=== PATIENT | female | born 1985 | race Asian ===

== ENCOUNTER 2017-06-07 08:15 | Inpatient (IN) | payer SELFPAY ==
[2017-06-06 12:55] LABS: BASOPHILS # (AUTO) 0.1 K/uL (0.0-0.2); BASOPHILS % (AUTO) 0.7 % (0.0-2.0); EOSINOPHILS # (AUTO) 0.1 K/uL (0.0-0.4); EOSINOPHILS % (AUTO) 0.6 % (0.0-4.0); HEMOGLOBIN 11.7 g/dL (12.0-16.0); LYMPHOCYTES # (AUTO) 1.5 K/uL (1.0-5.5); LYMPHOCYTES % (AUTO) 17.5 % (20.5-51.5); MEAN CORPUSCULAR HEMOGLOBIN 29 pg (27-31); MEAN CORPUSCULAR HGB CONC 33 % (32-36); MEAN CORPUSCULAR VOLUME 87 fL (79.0-98.0); MONOCYTES # (AUTO) 0.6 K/uL (0.0-1.0); MONOCYTES % (AUTO) 6.9 % (1.7-9.3); NEUTROPHILS # (AUTO) 6.3 K/uL (1.8-7.7); NEUTROPHILS % (AUTO) 74.3 % (40.0-70.0); PLATELET COUNT (AUTO) 178 K/uL (130-430); RED BLOOD CELL COUNT(AUTO) 4.03 MIL/uL (4.2-6.2); RED CELL DISTRIBUTION WIDTH 13.1 % (9.0-15.0); WHITE BLOOD COUNT (AUTO) 8.6 K/uL (4.8-10.8)
[2017-06-06 12:59] LABS: BILIRUBIN,URINE NEGATIVE (NEGATIVE); BLOOD, URINE NEGATIVE (NEGATIVE); CLARITY/URINE SL HAZY (CLEAR); COLOR,URINE YELLOW (YELLOW); GLUCOSE,URINE NEGATIVE (NEGATIVE); KETONES,URINE NEGATIVE (NEGATIVE); LEUKOCYTE ESTERASE ,URINE NEGATIVE (NEGATIVE); NITRITE, URINE NEGATIVE (NEGATIVE); PH,URINE 6.5 (5.0-8.0); PROTEIN URINE NEGATIVE (NEGATIVE); UROBILINOGEN,URINE 0.2 (0.2-1.0)
[~2017-06-07] VITALS: Ht 160 cm; Wt 79.4 kg
[2017-06-07] MEDS ORDERED: CEFAZOLIN 2 GM IVPB PREMIX 50 ML IV ONE ×2 (08:30→13:21)
[2017-06-07] MEDS: LR 1,000 ML IV SCH ×2 (09:15→13:00)
[2017-06-07 09:25] VITALS: BP_SYST 106
[2017-06-07] MEDS ORDERED: MORPHINE SULFATE 10MG/10ML PF AMP EP ONE (13:21)
[2017-06-07] MEDS ORDERED: fentaNYL CITRATE/PF 100 MCG/2 ML AMP IVP ONE (13:21)
[2017-06-07] MEDS ORDERED: OXYTOCIN 10 UNIT/ML VIAL IV ONE (13:21)
[2017-06-07] MEDS ORDERED: METOCLOPRAMIDE HCL 10 MG/2 ML VIAL IVP ONE (13:21)
[2017-06-07] MEDS ORDERED: DEXAMETHASONE SOD PHOSPHATE 4 MG/ML VIAL IVP ONE (13:21)
[2017-06-07] MEDS ORDERED: OXYTOCIN/NORMAL SALINE 1,000 ML IV ONE (13:29)
[2017-06-07] MEDS ORDERED: HYDROcodone/ACETAMIN 5-325 MG TAB (NORCO/ VICODIN) PO PRN (13:30)
[2017-06-07] MEDS ORDERED: MEASLES,MUMPS&RUBELLA VACC/PF 12500 UNIT/0.5 ML VIAL SUBQ PRN (13:30)
[2017-06-07] MEDS ORDERED: ANUSOL 1 EA SUPP.RECT (PREPARATION H) RC PRN (13:30)
[2017-06-07] MEDS ORDERED: LANOLIN 7 GM OINT. TP PRN (13:30)
[2017-06-07] MEDS ORDERED: OXYCODONE/ACETAMINOPHEN 5-325 TABLET PO PRN ×2 (13:30)
[2017-06-07] MEDS ORDERED: LR 1,000 ML IV ONE (14:07)
[2017-06-07] MEDS ORDERED: fentaNYL CITRATE/PF 100 MCG/2 ML AMP IVP PRN (14:15)
[2017-06-07] MEDS ORDERED: KETOROLAC TROMETHAMINE 30 MG VIAL IM PRN (14:15)
[2017-06-07] MEDS ORDERED: NALOXONE HCL 0.4 MG/ML AMP (NARCAN) IVP PRN (14:15)
[2017-06-07] MEDS ORDERED: DIPHENHYDRAMINE INJ 50 MG/ML VIAL IVP PRN (14:15)
[2017-06-07] MEDS ORDERED: NALBUPHINE HCL 10 MG/ML AMP IVP PRN (14:15)
[2017-06-07] MEDS ORDERED: ONDANSETRON HCL 4 MG/2 ML VIAL IVP PRN ×2 (14:15)
[2017-06-07] MEDS ORDERED: ePHEDrine sulfate 50 MG/ML VIAL IVP PRN (14:15)
[2017-06-07 15:05] VITALS: BP_SYST 90
[2017-06-07] MEDS: CEFAZOLIN 1 GM IVPB PREMIX 50 ML IV SCH (20:25)
[2017-06-07] MEDS ORDERED: TEMAZEPAM 15 MG CAPSULE PO PRN (21:00)
[2017-06-08] MEDS: CEFAZOLIN 1 GM IVPB PREMIX 50 ML IV SCH ×2 (02:05→08:09)
[2017-06-08] MEDS: LR 1,000 ML IV SCH (02:06)
[2017-06-08] MEDS: IBUPROFEN 600 MG TABLET PO SCH ×3 (06:03→18:13)
[2017-06-08 06:10] LABS: HEMOGLOBIN 11.1 g/dL (12.0-16.0); MEAN CORPUSCULAR HEMOGLOBIN 29 pg (27-31); MEAN CORPUSCULAR HGB CONC 33 % (32-36); MEAN CORPUSCULAR VOLUME 88 fL (79.0-98.0); PLATELET COUNT (AUTO) 160 K/uL (130-430); RED BLOOD CELL COUNT(AUTO) 3.87 MIL/uL (4.2-6.2); RED CELL DISTRIBUTION WIDTH 13.5 % (9.0-15.0); WHITE BLOOD COUNT (AUTO) 15.4 K/uL (4.8-10.8)
[2017-06-08 08:28] LABS: BAND % (MANUAL) 7 % (0-6); BASOPHILS % (MANUAL) 0 % (0-2); EOSINOPHILS % (MANUAL) 0 % (0-7); LYMPHOCYTES % (MANUAL) 8 % (20-46); MONOCYTES % (MANUAL) 4 % (0-11)
[2017-06-08] MEDS: DOCUSATE SODIUM 100 MG CAPSULE PO PRN (18:13)
[2017-06-09] MEDS: IBUPROFEN 600 MG TABLET PO SCH ×5 (00:09→17:45)
[2017-06-09] MEDS: SIMETHICONE 80 MG TAB.CHEW PO PRN ×2 (08:45→17:45)
[2017-06-09] MEDS: DOCUSATE SODIUM 100 MG CAPSULE PO PRN (08:45)
--- NOTE | 2017-06-09 08:58 | NUR ---
Nutrition Update Pt admitted for Diet: regular BMI: 31kg/m2 RD to follow per nutrition care standards.
[2017-06-10] MEDS: IBUPROFEN 600 MG TABLET PO SCH ×3 (00:08→12:00)
== END 2017-06-10 18:05 | disposition home or self-care (01) | DRG 766 ==
LOC: SPU 08:15
PROVIDERS: ADMIT Obstetrics & Gynecology; ATTEND Obstetrics & Gynecology
PROC: 10D00Z1 Extraction of Products of Conception, Low, Open Approach (ICD-10-PCS; principal; 2017-06-07 13:30)
PROC: 3E0234Z Introduction of Serum, Toxoid and Vaccine into Muscle, Percutaneous Approach (ICD-10-PCS; 2017-06-10)
DX: O34.211 Maternal care for low transverse scar from previous cesarean delivery (principal); O77.0 Labor and delivery complicated by meconium in amniotic fluid; Z23 Encounter for immunization; Z37.0 Single live birth; Z3A.40 40 weeks gestation of pregnancy
CPT/HCPCS: 36415; 81003; 85007; 85025; 85027; 86886; 86900; 86901; 94760; J0690; J1100; J2274; J2590; J2765; J3010